=== PATIENT | female | born 1995 | race Caucasian/White ===

== ENCOUNTER 2018-07-10 17:20 | Emergency (ER) | payer MEDICAID ==
[~2018-07-10] VITALS: Ht 160 cm; Wt 55.0 kg
[2018-07-10] MEDS ORDERED: ONDANSETRON (ODT) 4 MG TAB ODT STA (17:22)
[2018-07-10] MEDS ORDERED: HYDROCODONE/APAP (5/325) TAB PO ONE (17:30)
[2018-07-10 17:32] VITALS: Ht 160 cm; Wt 55.0 kg
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
[2018-07-10] MEDS ORDERED: IBUP800T48 PO (20:42)
[2018-07-10 20:54] VITALS: BP 110/66; PULSE 70; RESP 20
== END 2018-07-10 20:57 | disposition home or self-care (01) ==
LOC: E/R 17:20
DX: S09.90XA Unspecified injury of head, initial encounter (principal); S13.4XXA Sprain of ligaments of cervical spine, initial encounter; R07.9 Chest pain, unspecified; R51 Headache; V49.50XA Passenger injured in collision with unspecified motor vehicles in traffic accident, initial encounter
CPT/HCPCS: 70450; 71045; 72125; 84703; Z7502; Z7610